=== PATIENT | male | born 1980 | race Caucasian/White ===

== ENCOUNTER → 2024-12-18 07:37 | Outpatient (CLI) | payer OTHER, SELFPAY ==
--- NOTE | 2024-12-18 07:38 | DI.MRI.S_ITS ---
PROCEDURE: MR SHOULDER RT WO CON INDICATIONS: right shoulder pain TECHNIQUE: Noncontrast oblique coronal T2 fast spin echo with fat saturation, oblique sagittal T1 spin echo and T2 fast spin echo with fat saturation, axial T1 spin echo and T2 fast spin echo with fat saturation through the shoulder. COMPARISON: None. FINDINGS: Image quality: Excellent. Rotator cuff: Mild tendinosis of the supraspinatus and infraspinatus. There is high-grade, bursal sided tear at the critical zone of the junction of the supraspinatus and infraspinatus (08:12). The teres minor is unremarkable. Mild tendinosis of the subscapularis, without tear. No muscle edema or fatty atrophy. Bones and bursae: Mild degenerative changes of the acromioclavicular joint. Type 1 acromion. No os acromiale. No subacromial/subdeltoid bursitis. Mild subchondral cystic changes at the lesser tuberosity, reactive. No acute fracture. Susceptibility artifact about the superior glenoid, postprocedural. No definitive focal chondral defect of the glenohumeral articulation. Capsule and soft tissues: Prior superior labral repair with susceptibility artifact, limits evaluation. Posterior labral tear. No paralabral cyst. Mild tenosynovitis of the extra-articular biceps tendon. The intra-articular biceps tendon is unremarkable. No signal glenohumeral effusion. No intra-articular body. IMPRESSION: 1. High-grade tear at the critical zone of the junction of the supraspinatus and infraspinatus. 2. Prior superior labral repair with susceptibility artifact, limits evaluation. Posterior labral tear. 3. Mild tenosynovitis of the extra-articular biceps tendon. Dictated by: Bianca Sandoval M.D. on 12/18/2024 at 17:20 Approved by: Bianca Sandoval M.D. on 12/18/2024 at 17:27
== END ==
LOC: MRI 07:37
PROVIDERS: Referring Provider Student in an Organized Health Care Education/Training Program; Visit Provider Student in an Organized Health Care Education/Training Program
DX: M75.111 Incomplete rotator cuff tear or rupture of right shoulder, not specified as traumatic (principal); S43.491A Other sprain of right shoulder joint, initial encounter; M65.921 Unspecified synovitis and tenosynovitis, right upper arm; M25.511 Pain in right shoulder
CPT/HCPCS: 73221